=== PATIENT | female | born 1950 | race Caucasian/White ===

== ENCOUNTER → 2017-09-12 | Outpatient (CLI) | payer OTHER | END | disposition home or self-care (01) | LOC: CFH 15:31 | PROVIDERS: ATTEND Internal Medicine | DX: I65.23 Occlusion and stenosis of bilateral carotid arteries (principal); E78.1 Pure hyperglyceridemia; E55.9 Vitamin D deficiency, unspecified; E61.1 Iron deficiency; F41.9 Anxiety disorder, unspecified; F32.89 Other specified depressive episodes; K21.9 Gastro-esophageal reflux disease without esophagitis; I65.8 Occlusion and stenosis of other precerebral arteries; L71.9 Rosacea, unspecified; M54.9 Dorsalgia, unspecified; H26.9 Unspecified cataract; J44.0 Chronic obstructive pulmonary disease with (acute) lower respiratory infection; Z72.0 Tobacco use | CPT/HCPCS: 93880 ==

== ENCOUNTER → 2018-06-12 | Outpatient (CLI) | payer OTHER | END | disposition home or self-care (01) | LOC: CFH 10:37 | PROVIDERS: ATTEND Internal Medicine | DX: Z12.2 Encounter for screening for malignant neoplasm of respiratory organs (principal); J44.0 Chronic obstructive pulmonary disease with (acute) lower respiratory infection; J98.11 Atelectasis; Z72.0 Tobacco use | CPT/HCPCS: 77067; G0297 ==

== ENCOUNTER → 2018-10-28 | Outpatient (CLI) | payer OTHER ==
[~2018-10-28] MED LIST: ASPI81TA50 PO; ATOR40TA78 PO; CARI350T PO; CELE100C PO; DULO60CA7 PO; PROG100C16 PO
== END | disposition home or self-care (01) ==
LOC: CFH 11:25
PROVIDERS: ATTEND Internal Medicine
DX: M79.89 Other specified soft tissue disorders (principal); M19.042 Primary osteoarthritis, left hand; E78.5 Hyperlipidemia, unspecified; F41.9 Anxiety disorder, unspecified; K21.9 Gastro-esophageal reflux disease without esophagitis; J44.9 Chronic obstructive pulmonary disease, unspecified; F32.89 Other specified depressive episodes; J44.0 Chronic obstructive pulmonary disease with (acute) lower respiratory infection; Z79.899 Other long term (current) drug therapy; Z72.89 Other problems related to lifestyle; Z87.891 Personal history of nicotine dependence; Z88.8 Allergy status to other drugs, medicaments and biological substances

== ENCOUNTER 2018-11-11 09:30 | Outpatient (CLI) | payer MEDICARE, OTHER ==
[~2018-11-11 09:30] MED LIST changes: +OXYC5TAB3 PO
== END 2018-11-11 23:59 | disposition home or self-care (01) ==
LOC: WOUND 09:30
PROVIDERS: ATTEND Nurse Practitioner Family
DX: T81.89XD Other complications of procedures, not elsewhere classified, subsequent encounter (principal); A49.01 Methicillin susceptible Staphylococcus aureus infection, unspecified site; M86.042 Acute hematogenous osteomyelitis, left hand; M65.842 Other synovitis and tenosynovitis, left hand; M54.9 Dorsalgia, unspecified; E78.5 Hyperlipidemia, unspecified; G62.9 Polyneuropathy, unspecified; M19.042 Primary osteoarthritis, left hand; I25.10 Atherosclerotic heart disease of native coronary artery without angina pectoris; Z87.891 Personal history of nicotine dependence; Z90.49 Acquired absence of other specified parts of digestive tract; Y83.8 Other surgical procedures as the cause of abnormal reaction of the patient, or of later complication, without mention of misadventure at the time of the procedure
CPT/HCPCS: 11044; 99215

== ENCOUNTER 2018-11-14 08:07 | Outpatient (CLI) | payer OTHER | END 2018-11-14 23:59 | disposition home or self-care (01) | LOC: WOUND 08:07 | PROVIDERS: ATTEND Family Medicine | DX: T81.89XD Other complications of procedures, not elsewhere classified, subsequent encounter (principal); A49.01 Methicillin susceptible Staphylococcus aureus infection, unspecified site; M86.042 Acute hematogenous osteomyelitis, left hand; M65.842 Other synovitis and tenosynovitis, left hand; M54.9 Dorsalgia, unspecified; E78.5 Hyperlipidemia, unspecified; G62.9 Polyneuropathy, unspecified; M19.042 Primary osteoarthritis, left hand; I25.10 Atherosclerotic heart disease of native coronary artery without angina pectoris; Z87.891 Personal history of nicotine dependence; Z90.49 Acquired absence of other specified parts of digestive tract; Y83.8 Other surgical procedures as the cause of abnormal reaction of the patient, or of later complication, without mention of misadventure at the time of the procedure | CPT/HCPCS: 99213 ==

== ENCOUNTER → 2018-11-18 | Outpatient (CLI) | payer OTHER | END | disposition home or self-care (01) | LOC: WOUND 08:15 | PROVIDERS: ATTEND Nurse Practitioner Family | DX: T81.89XD Other complications of procedures, not elsewhere classified, subsequent encounter (principal); A49.01 Methicillin susceptible Staphylococcus aureus infection, unspecified site; M86.042 Acute hematogenous osteomyelitis, left hand; M65.842 Other synovitis and tenosynovitis, left hand; M54.9 Dorsalgia, unspecified; E78.5 Hyperlipidemia, unspecified; G62.9 Polyneuropathy, unspecified; M19.042 Primary osteoarthritis, left hand; I25.10 Atherosclerotic heart disease of native coronary artery without angina pectoris; Z87.891 Personal history of nicotine dependence; Z90.49 Acquired absence of other specified parts of digestive tract; Y83.8 Other surgical procedures as the cause of abnormal reaction of the patient, or of later complication, without mention of misadventure at the time of the procedure | CPT/HCPCS: 15275; Q4132 ==

== ENCOUNTER → 2018-11-21 | Outpatient (CLI) | payer OTHER | END | disposition home or self-care (01) | LOC: WOUND 08:30 | PROVIDERS: ATTEND Family Medicine | DX: T81.89XD Other complications of procedures, not elsewhere classified, subsequent encounter (principal); A49.01 Methicillin susceptible Staphylococcus aureus infection, unspecified site; M86.042 Acute hematogenous osteomyelitis, left hand; M65.842 Other synovitis and tenosynovitis, left hand; M54.9 Dorsalgia, unspecified; E78.5 Hyperlipidemia, unspecified; G62.9 Polyneuropathy, unspecified; M19.042 Primary osteoarthritis, left hand; I25.10 Atherosclerotic heart disease of native coronary artery without angina pectoris; J44.9 Chronic obstructive pulmonary disease, unspecified; K21.9 Gastro-esophageal reflux disease without esophagitis; F41.9 Anxiety disorder, unspecified; E43 Unspecified severe protein-calorie malnutrition; Z79.899 Other long term (current) drug therapy; Z87.891 Personal history of nicotine dependence; Z90.49 Acquired absence of other specified parts of digestive tract; Y83.8 Other surgical procedures as the cause of abnormal reaction of the patient, or of later complication, without mention of misadventure at the time of the procedure | CPT/HCPCS: 99213 ==

== ENCOUNTER → 2018-11-25 | Outpatient (CLI) | payer OTHER | END | disposition home or self-care (01) | LOC: WOUND 08:00 | PROVIDERS: ATTEND Nurse Practitioner Family | DX: T81.89XD Other complications of procedures, not elsewhere classified, subsequent encounter (principal); A49.01 Methicillin susceptible Staphylococcus aureus infection, unspecified site; M86.042 Acute hematogenous osteomyelitis, left hand; M65.842 Other synovitis and tenosynovitis, left hand; M54.9 Dorsalgia, unspecified; E78.5 Hyperlipidemia, unspecified; G62.9 Polyneuropathy, unspecified; M19.042 Primary osteoarthritis, left hand; I25.10 Atherosclerotic heart disease of native coronary artery without angina pectoris; J44.9 Chronic obstructive pulmonary disease, unspecified; K21.9 Gastro-esophageal reflux disease without esophagitis; F41.9 Anxiety disorder, unspecified; E43 Unspecified severe protein-calorie malnutrition; Z79.899 Other long term (current) drug therapy; Z87.891 Personal history of nicotine dependence; Z90.49 Acquired absence of other specified parts of digestive tract; Y83.8 Other surgical procedures as the cause of abnormal reaction of the patient, or of later complication, without mention of misadventure at the time of the procedure | CPT/HCPCS: 15275; Q4132 ==

== ENCOUNTER → 2018-12-02 | Outpatient (CLI) | payer OTHER | END | disposition home or self-care (01) | LOC: WOUND 13:31 | PROVIDERS: ATTEND Nurse Practitioner Family | DX: T81.89XD Other complications of procedures, not elsewhere classified, subsequent encounter (principal); A49.01 Methicillin susceptible Staphylococcus aureus infection, unspecified site; M86.042 Acute hematogenous osteomyelitis, left hand; M65.842 Other synovitis and tenosynovitis, left hand; M54.9 Dorsalgia, unspecified; E78.5 Hyperlipidemia, unspecified; G62.9 Polyneuropathy, unspecified; M19.042 Primary osteoarthritis, left hand; I25.10 Atherosclerotic heart disease of native coronary artery without angina pectoris; J44.9 Chronic obstructive pulmonary disease, unspecified; K21.9 Gastro-esophageal reflux disease without esophagitis; F41.9 Anxiety disorder, unspecified; E43 Unspecified severe protein-calorie malnutrition; Z79.899 Other long term (current) drug therapy; Z87.891 Personal history of nicotine dependence; Z90.49 Acquired absence of other specified parts of digestive tract; Y83.8 Other surgical procedures as the cause of abnormal reaction of the patient, or of later complication, without mention of misadventure at the time of the procedure | CPT/HCPCS: 15275; Q4132 ==

== ENCOUNTER 2018-12-09 13:24 | Outpatient (CLI) | payer OTHER | END 2018-12-09 23:59 | disposition home or self-care (01) | LOC: WOUND 13:24 | PROVIDERS: ATTEND Nurse Practitioner Family | DX: T81.89XD Other complications of procedures, not elsewhere classified, subsequent encounter (principal); A49.01 Methicillin susceptible Staphylococcus aureus infection, unspecified site; M86.042 Acute hematogenous osteomyelitis, left hand; M65.842 Other synovitis and tenosynovitis, left hand; G89.29 Other chronic pain; M54.9 Dorsalgia, unspecified; E78.5 Hyperlipidemia, unspecified; G62.9 Polyneuropathy, unspecified; M19.042 Primary osteoarthritis, left hand; I25.10 Atherosclerotic heart disease of native coronary artery without angina pectoris; J44.9 Chronic obstructive pulmonary disease, unspecified; K21.9 Gastro-esophageal reflux disease without esophagitis; F41.9 Anxiety disorder, unspecified; E43 Unspecified severe protein-calorie malnutrition; Z79.899 Other long term (current) drug therapy; Z87.891 Personal history of nicotine dependence; Z88.8 Allergy status to other drugs, medicaments and biological substances; Z90.49 Acquired absence of other specified parts of digestive tract; Y83.8 Other surgical procedures as the cause of abnormal reaction of the patient, or of later complication, without mention of misadventure at the time of the procedure | CPT/HCPCS: 15275; 97597; Q4132 ==

== ENCOUNTER 2018-12-17 09:55 | Outpatient (CLI) | payer OTHER | END 2018-12-17 23:59 | disposition home or self-care (01) | LOC: WOUND 09:55 | PROVIDERS: ATTEND Internal Medicine | DX: T81.89XD Other complications of procedures, not elsewhere classified, subsequent encounter (principal); M86.042 Acute hematogenous osteomyelitis, left hand; M65.842 Other synovitis and tenosynovitis, left hand; A49.01 Methicillin susceptible Staphylococcus aureus infection, unspecified site; G89.29 Other chronic pain; M54.9 Dorsalgia, unspecified; G62.9 Polyneuropathy, unspecified; M19.042 Primary osteoarthritis, left hand; J44.9 Chronic obstructive pulmonary disease, unspecified; K21.9 Gastro-esophageal reflux disease without esophagitis; I25.10 Atherosclerotic heart disease of native coronary artery without angina pectoris; F41.9 Anxiety disorder, unspecified; Z79.899 Other long term (current) drug therapy; Z87.891 Personal history of nicotine dependence; Z90.49 Acquired absence of other specified parts of digestive tract; Z88.8 Allergy status to other drugs, medicaments and biological substances; Y83.8 Other surgical procedures as the cause of abnormal reaction of the patient, or of later complication, without mention of misadventure at the time of the procedure | CPT/HCPCS: 99213 ==

== ENCOUNTER → 2018-12-23 | Outpatient (CLI) | payer OTHER | END | disposition home or self-care (01) | LOC: WOUND 14:28 | PROVIDERS: ATTEND Nurse Practitioner Family | DX: T81.89XD Other complications of procedures, not elsewhere classified, subsequent encounter (principal); A49.01 Methicillin susceptible Staphylococcus aureus infection, unspecified site; M86.042 Acute hematogenous osteomyelitis, left hand; M65.842 Other synovitis and tenosynovitis, left hand; M54.9 Dorsalgia, unspecified; E78.5 Hyperlipidemia, unspecified; G62.9 Polyneuropathy, unspecified; M19.042 Primary osteoarthritis, left hand; I25.10 Atherosclerotic heart disease of native coronary artery without angina pectoris; J44.9 Chronic obstructive pulmonary disease, unspecified; K21.9 Gastro-esophageal reflux disease without esophagitis; F41.9 Anxiety disorder, unspecified; E43 Unspecified severe protein-calorie malnutrition; Z79.899 Other long term (current) drug therapy; Z87.891 Personal history of nicotine dependence; Z90.49 Acquired absence of other specified parts of digestive tract; Y83.8 Other surgical procedures as the cause of abnormal reaction of the patient, or of later complication, without mention of misadventure at the time of the procedure | CPT/HCPCS: 97597 ==

== ENCOUNTER → 2018-12-30 | Outpatient (CLI) | payer OTHER | END | disposition home or self-care (01) | LOC: WOUND 11:00 | PROVIDERS: ATTEND Nurse Practitioner Family | DX: T81.89XD Other complications of procedures, not elsewhere classified, subsequent encounter (principal); M86.042 Acute hematogenous osteomyelitis, left hand; M65.842 Other synovitis and tenosynovitis, left hand; A49.01 Methicillin susceptible Staphylococcus aureus infection, unspecified site; G89.29 Other chronic pain; M54.9 Dorsalgia, unspecified; E78.5 Hyperlipidemia, unspecified; G62.9 Polyneuropathy, unspecified; M19.042 Primary osteoarthritis, left hand; J44.9 Chronic obstructive pulmonary disease, unspecified; K21.9 Gastro-esophageal reflux disease without esophagitis; I25.10 Atherosclerotic heart disease of native coronary artery without angina pectoris; F41.9 Anxiety disorder, unspecified; Z87.891 Personal history of nicotine dependence; Z79.899 Other long term (current) drug therapy; Z90.49 Acquired absence of other specified parts of digestive tract; Z88.8 Allergy status to other drugs, medicaments and biological substances; Y83.8 Other surgical procedures as the cause of abnormal reaction of the patient, or of later complication, without mention of misadventure at the time of the procedure | CPT/HCPCS: 97597 ==

== ENCOUNTER → 2019-01-06 | Outpatient (CLI) | payer OTHER | END | disposition home or self-care (01) | LOC: WOUND 13:51 | PROVIDERS: ATTEND Nurse Practitioner Family | DX: T81.89XD Other complications of procedures, not elsewhere classified, subsequent encounter (principal); M86.042 Acute hematogenous osteomyelitis, left hand; M65.842 Other synovitis and tenosynovitis, left hand; A49.01 Methicillin susceptible Staphylococcus aureus infection, unspecified site; G89.29 Other chronic pain; M54.9 Dorsalgia, unspecified; E78.5 Hyperlipidemia, unspecified; G62.9 Polyneuropathy, unspecified; M19.042 Primary osteoarthritis, left hand; J44.9 Chronic obstructive pulmonary disease, unspecified; K21.9 Gastro-esophageal reflux disease without esophagitis; I25.10 Atherosclerotic heart disease of native coronary artery without angina pectoris; F41.9 Anxiety disorder, unspecified; Z87.891 Personal history of nicotine dependence; Z79.899 Other long term (current) drug therapy; Z90.49 Acquired absence of other specified parts of digestive tract; Z88.8 Allergy status to other drugs, medicaments and biological substances; Y83.8 Other surgical procedures as the cause of abnormal reaction of the patient, or of later complication, without mention of misadventure at the time of the procedure | CPT/HCPCS: 97597 ==

== ENCOUNTER 2019-04-09 14:50 | Outpatient (CLI) | payer OTHER | END 2019-04-09 23:59 | disposition home or self-care (01) | LOC: CFH 14:50 | PROVIDERS: ATTEND Internal Medicine | DX: N64.89 Other specified disorders of breast (principal) | CPT/HCPCS: 76642; 77066; G0279 ==